=== PATIENT | male | born 1970 | race Caucasian/White ===

== ENCOUNTER 2019-03-08 12:54 | Emergency (ER) | payer BC ==
[2019-03-08 13:50] LABS: Absolute Lymphocytes (CBC) 2.6 K/uL (0.7-4.9); Basophils % 0.3 % (0-1.3); Hematocrit 47.8 % (39.6-49.0); Lymphocytes % 14.1 % (15.3-44.8); MPV 8.8 fL (7.6-11.3); RBC Red Blood Cell Count 5.44 M/uL (4.33-5.43)
[2019-03-08 14:02] LABS: Potassium 4.3 mmol/L (3.5-5.1)
[2019-03-08] MEDS ORDERED: NA CHLORIDE 0.9% 1,000 ML ONE (14:44)
--- NOTE | 2019-03-08 15:03 | RAD REPORT ---
EXAM DESCRIPTION: CT - Abdomen Pelvis Wo Contrast - 03/08/2019 2:49 pm CLINICAL HISTORY: Abdominal pain. 18K WBC COMPARISON: No comparisons TECHNIQUE: CT imaging of the abdomen and pelvis was performed without contrast. Solid organ, bowel a nd vascular assessment is limited due to lack of IV and oral contrast. All CT scans are performed using dose optimization technique as appropriate and may include automated exposure control or mA/KV adjustment according to patient size. FINDINGS: The lower lung lares are clear. The liver, spleen, pancreas, adrenal glands and kidneys are within normal limits for a limited non-co ntrast examination. No bowel obstruction, free air, free fluid or abscess. Several prominent small bowel loops are presen t in the left abdomen. The appendix is normal. The osseous structures are within normal limits. IMPRESSION: Mildly thickened left-sided small bowel loops suggesting mild enteritis. A limited non-contrast examination was performed as detailed.
--- NOTE | 2019-03-08 15:10 | RAD REPORT ---
EXAM DESCRIPTION: RAD - Chest Single View - 03/08/2019 3:01 pm CLINICAL HISTORY: COUGH Chest pain. COMPARISON: Chest Single View dated 11/05/2016; CHEST SINGLE VIEW dated 07/01/2015 FINDINGS: Portable technique limits examination quality. The lungs are grossly clear. The heart is normal in size. No displaced fractures. IMPRESSION: No acute intrathoracic process suspected.
--- NOTE | 2019-03-08 15:59 | ER ---
Nurse's Notes [facility] Name: Sher Willard Age: 48 yrs Sex: Male : 1970 Arrival Date: 03/08/2019 Time: 12:58 Bed 19 Private MD: Jocelyn Chandler H Diagnosis: Hyperglycemia, unspecified;Enteritis;Dehydration Presentation: 03/08 12:59 Presenting complaint: Patient states: I have been feeling ill today and my BGL was like la1 265. Transition of care: patient was not received from another setting of care. Onset of symptoms was March 08, 2019. Risk Assessment: Do you want to hurt yourself or someone else? Patient reports no desire to harm self or others. Initial Sepsis Screen: Does the patient meet any 2 criteria? No. Patient's initial sepsis screen is negative. Does the patient have a suspected source of infection? No. Patient's initial sepsis screen is negative. Care prior to arrival: None. 12:59 Method Of Arrival: Ambulatory la1 12:59 Acuity: SEBASTIAN 3 la1 Historical: - Allergies: 13:00 NKDA; la1 - PMHx: 13:00 Diabetes - NIDDM; Hyperlipidemia; Hypertension; la1 - Immunization history:: Adult Immunizations up to date. - Social history:: Smoking status: Patient/guardian denies using tobacco. - Ebola Screening: : No symptoms or risks identified at this time. - Family history:: not pertinent. - Hospitalizations: : No recent hospitalization is reported. Screenin:30 Abuse screen: Denies threats or abuse. Denies injuries from another. Nutritional sg screening: No deficits noted. Tuberculosis screening: No symptoms or risk factors identified. Never had TB. Fall Risk None identified. Assessment: 13:10 General: Appears in no apparent distress. well groomed, well developed, well nourished, sg Behavior is calm, cooperative, appropriate for age. General: Reports feeling ill for 12-24 hours. Pain: Denies pain. Neuro: Level of Consciousness is awake, alert, obeys commands, Oriented to person, place, time, Front Office Supervisor are equal bilaterally Moves all extremities. Gait is steady, Speech is normal, Facial symmetry appears normal. Cardiovascular: Capillary refill is brisk in bilateral fingers Patient's skin is warm and dry. Chest pain is denied. Respiratory: Airway is patent Respiratory effort is even, unlabored, Respiratory pattern is regular, symmetrical. GI: Abdomen is round non-distended, Bowel sounds present X 4 quads. Reports normal bowel habits, tolerance of fluids, tolerance of food. : No signs and/or symptoms were reported regarding the genitourinary system. EENT: No signs and/or symptoms were reported regarding the EENT system. Derm: Skin is pink, warm \T\ dry. Musculoskeletal: Circulation, motion, and sensation intact. Range of motion: intact in all extremities. 13:43 Reassessment: Patient appears in no apparent distress at this time. Patient and/or sg family updated on plan of care and expected duration. Pain level reassessed. Patient is alert, oriented x 3, equal unlabored respirations, skin warm/dry/pink. 14:22 Reassessment: Patient appears in no apparent distress at this time. Patient and/or sg family updated on plan of care and expected duration. Pain level reassessed. Patient is alert, oriented x 3, equal unlabored respirations, skin warm/dry/pink. awaiting results at this time, will continue to monitor. 15:30 Reassessment: Patient appears in no apparent distress at this time. Patient and/or sg family updated on plan of care and expected duration. Pain level reassessed. Patient is alert, oriented x 3, equal unlabored respirations, skin warm/dry/pink. Vital Signs: 12:59 Pulse 91; Resp 16; Temp 97.6; Pulse Ox 97% on R/A; Weight 106.59 kg; Height 6 ft. 0 in. la1 (182.88 cm); 13:00 BP 117 / 70; la1 15:12 Pulse 74; Resp 16 S; Temp 97.6; Pulse Ox 100% on R/A; sg 15:16 BP 126 / 81; sg 12:59 Body Mass Index 31.87 (106.59 kg, 182.88 cm) la1 ED Course: 12:58 Patient arrived in ED. mr 12:58 Jocelyn Chandler DO is Private Physician. mr 12:59 Arm band placed on left wrist. la1 13:00 Triage completed. la1 13:02 Vu Mckinney, GIOVANNY is Primary Nurse. sg 13:13 Francisco Schaffer MD is Attending Physician. rn 13:15 Patient has correct armband on for positive identification. Bed in low position. Call mh5 light in reach. Adult w/ patient. 13:40 Initial lab(s) drawn, by me, sent to lab. Inserted saline lock: 20 gauge in left sg antecubital area, using aseptic technique. Blood collected. 14:55 CT Abd/Pelvis - Without Contrast In Process Unspecified. EDMS 15:07 XRAY Chest (1 view) In Process Unspecified. EDMS 15:57 Jocelyn Chandler DO is Referral Physician. rn 16:00 No provider procedures requiring assistance completed. IV discontinued, intact, sg bleeding controlled, No redness/swelling at site. Pressure dressing applied. Administered Medications: 13:42 Drug: NS 0.9% 1000 ml Route: IV; Rate: 1000 ml; Site: left antecubital; sg 15:00 Drug: NS 0.9% 1000 ml Route: IV; Rate: 1000 ml; Site: left antecubital; sg 16:00 Follow up: Response: No adverse reaction; IV Status: Completed infusion; IV Intake: sg 990ml Point of Care Testing: Blood Glucose: 13:42 Blood Glucose: 150 mg/dL; sg Ranges: Intake: 16:00 IV: 990ml; Total: 990ml. sg Outcome: 15:58 Discharge ordered by . rn 16:00 Discharged to home ambulatory, with family. sg 16:00 Condition: good 16:00 Discharge instructions given to patient, Instructed on discharge instructions, follow up and referral plans. medication usage, safety practices, Demonstrated understanding of instructions, follow-up care, Prescriptions given X 3. 16:07 Patient left the ED. iw Signatures: Dispatcher [employer] EDMS Vu Mckinney, GIOVANNY BALTAZAR Seema Clements Irene, RN RN iw Nieto, Roman, MD MD rn Attema, Lee, RN RN la1 Martinez, Maria [facility]
--- NOTE | 2019-03-08 16:00 | EDPHYS ---
Physician Documentation [facility] Name: Sher Willard Age: 48 yrs Sex: Male : 1970 Arrival Date: 03/08/2019 Time: 12:58 Bed 19 Private MD: Jocelyn Chandler H ED Physician Francisco Schaffer HPI: 03/08 15:52 This 48 yrs old Male presents to ER via Ambulatory with complaints of High rn Blood Sugar. 15:52 The patient or guardian reports hyperglycemia. Onset: The symptoms/episode rn began/occurred at an unknown time. Associated signs and symptoms: Pertinent positives: polydipsia, Pertinent negatives: constipation, decreased urine output, diarrhea, polyphagia. Current symptoms: In the emergency department the patient's symptoms are unchanged from the initial presentation. The patient has not experienced similar symptoms in the past. The patient has not recently seen a physician. Reports sugar has been running high for about a week, + increased thirst, works outside a lot, today was unloading a truck and got dizzy, took a knee, no syncope, denies pain/focal neuro complains. . Historical: - Allergies: 13:00 NKDA; la1 - PMHx: 13:00 Diabetes - NIDDM; Hyperlipidemia; Hypertension; la1 - Immunization history:: Adult Immunizations up to date. - Social history:: Smoking status: Patient/guardian denies using tobacco. - Ebola Screening: : No symptoms or risks identified at this time. - Family history:: not pertinent. - Hospitalizations: : No recent hospitalization is reported. ROS: 15:52 Constitutional: Negative for fever, chills, and weight loss, Eyes: Negative for injury, rn pain, redness, and discharge, Neck: Negative for injury, pain, and swelling, Cardiovascular: Negative for chest pain, palpitations, and edema, Respiratory: Negative for shortness of breath, cough, wheezing, and pleuritic chest pain, Abdomen/GI: Negative for abdominal pain, nausea, vomiting, diarrhea, and constipation, Back: Negative for injury and pain, MS/Extremity: Negative for injury and deformity, Skin: Negative for injury, rash, and discoloration, Neuro: Negative for headache, numbness, tingling, and seizure. Exam: 14:35 Constitutional: This is a well developed, well nourished patient who is awake, alert, rn and in no acute distress. Head/Face: Normocephalic, atraumatic. Eyes: Pupils equal round and reactive to light, extra-ocular motions intact. Lids and lashes normal. Conjunctiva and sclera are non-icteric and not injected. Cornea within normal limits. Periorbital areas with no swelling, redness, or edema. ENT: MMM, no exudate or swelling Neck: Trachea midline, no thyromegaly or masses palpated, and no cervical lymphadenopathy. Supple, full range of motion without nuchal rigidity, or vertebral point tenderness. No Meningismus. Cardiovascular: Regular rate and rhythm with a normal S1 and S2. No gallops, murmurs, or rubs. Normal PMI, no JVD. No pulse deficits. Respiratory: Lungs have equal breath sounds bilaterally, clear to auscultation and percussion. No rales, rhonchi or wheezes noted. No increased work of breathing, no retractions or nasal flaring. Abdomen/GI: Soft, non-tender, with normal bowel sounds. No distension or tympany. No guarding or rebound. No evidence of tenderness throughout. Skin: Warm, dry. Normal color with no rashes, no lesions, and no evidence of cellulitis. MS/ Extremity: Pulses equal, no cyanosis. Neurovascular intact. Full, normal range of motion. Equal circumference. Neuro: Awake and alert, GCS 15, oriented to person, place, time, and situation. Cranial nerves II-XII grossly intact. Motor strength 5/5 in all extremities. Sensory grossly intact. Cerebellar exam normal. 15:22 ECG was reviewed by the Attending Physician. rn Vital Signs: 12:59 Pulse 91; Resp 16; Temp 97.6; Pulse Ox 97% on R/A; Weight 106.59 kg; Height 6 ft. 0 in. la1 (182.88 cm); 13:00 BP 117 / 70; la1 15:12 Pulse 74; Resp 16 S; Temp 97.6; Pulse Ox 100% on R/A; sg 15:16 BP 126 / 81; sg 12:59 Body Mass Index 31.87 (106.59 kg, 182.88 cm) la1 MDM: 13:13 Patient medically screened. rn 15:52 Differential diagnosis: hyperglycemia, enteritis, viral syndrome, dehydration. Data rn reviewed: vital signs, nurses notes, lab test result(s), radiologic studies, CT scan, plain films, and as a result, I will discharge patient. Counseling: I had a detailed discussion with the patient and/or guardian regarding: the historical points, exam findings, and any diagnostic results supporting the discharge/admit diagnosis, lab results, radiology results, the need for outpatient follow up, to return to the emergency department if symptoms worsen or persist or if there are any questions or concerns that arise at home. Special discussion: I discussed with the patient/guardian in detail that at this point there is no indication for admission to the hospital. It is understood, however, that if the symptoms persist or worsen the patient needs to return immediately for re-evaluation. ED course: Pt with acute kidney injury, likely not far off of baseline, doesn't manage his blood glucose as he should, and can improve his diet. Given 2 L bolus and currently asymptomatic. Will dc home. Has f/u appt with pcp in 2 days and recommend recheck kidney function. CT shows enteritis, will dc home with zofran prn. . 03/08 13:23 Order name: CBC with Diff; Complete Time: 14:12 rn 03/08 13:23 Order name: Basic Metabolic Panel; Complete Time: 14:12 rn 03/08 14:26 Order name: XRAY Chest (1 view); Complete Time: 15:48 rn 03/08 14:26 Order name: CT Abd/Pelvis - Without Contrast; Complete Time: 15:48 rn 03/08 14:45 Order name: Glucose, Ancillary Testing; Complete Time: 15:24 EDPA 03/08 15:01 Order name: Urine Dipstick--Ancillary (enter results) bd 03/08 13:23 Order name: IV Start; Complete Time: 13:42 rn 03/08 13:23 Order name: Glucose Level; Complete Time: 13:42 rn 03/08 13:23 Order name: EKG; Complete Time: 13:24 rn 03/08 13:23 Order name: EKG - Nurse/Tech; Complete Time: 14:43 rn 03/08 14:35 Order name: Urine Dipstick-Ancillary (obtain specimen); Complete Time: 15:00 rn EC:22 Rate is 81 beats/min. Rhythm is regular. QRS [place] is Normal. NC interval is normal. QRS rn interval is normal. QT interval is normal. No Q waves. T waves are Normal. No ST changes noted. Clinical impression: Normal ECG. Interpreted by me. Reviewed by me. Administered Medications: 13:42 Drug: NS 0.9% 1000 ml Route: IV; Rate: 1000 ml; Site: left antecubital; sg 15:00 Drug: NS 0.9% 1000 ml Route: IV; Rate: 1000 ml; Site: left antecubital; sg 16:00 Follow up: Response: No adverse reaction; IV Status: Completed infusion; IV Intake: sg 990ml Point of Care Testing: Blood Glucose: 13:42 Blood Glucose: 150 mg/dL; sg Ranges: Critical Glucose Levels:Adult <50 mg/dl or >400 mg/dl <40 mg/dl or >180 mg/dl Disposition: 03/08/19 15:58 Discharged to Home. Impression: Hyperglycemia, unspecified, Enteritis, Dehydration. - Condition is Stable. - Discharge Instructions: Dehydration, Adult, Hyperglycemia, Blood Glucose Monitoring, Adult. - Prescriptions for Zofran ODT 4 mg Oral tablet,disintegrating - place 1 tablet by TRANSLINGUAL route every 8 hours As needed; 20 tablet. Cipro 500 mg Oral Tablet - take 1 tablet by ORAL route every 12 hours for 10 days; 20 tablet. Flagyl 500 mg Oral Tablet - take 1 tablet by ORAL route every 8 hours for 10 days; 30 tablet. - Medication Reconciliation Form, Thank You Letter, Antibiotic Education, Prescription Opioid Use form. - Follow up: Jocelyn Chandler DO; When: As needed; Reason: Recheck today's complaints, Re-evaluation by your physician. - Problem is new. - Symptoms have improved. Signatures: Dispatcher [employer] EDMS Vu Mckinney RN RN sg Williams, Irene, RN RN iw Nieto, Roman, MD MD rn Attema, Lee, RN RN la1 Corrections: (The following items were deleted from the chart) 14:39 14:35 Constitutional: This is a well developed, well nourished patient who is awake, rn alert, and in no acute distress. Head/Face: Normocephalic, atraumatic. Eyes: Pupils equal round and reactive to light, extra-ocular motions intact. Lids and lashes normal. Conjunctiva and sclera are non-icteric and not injected. Cornea within normal limits. Periorbital areas with no swelling, redness, or edema. Neck: Trachea midline, no thyromegaly or masses palpated, and no cervical lymphadenopathy. Supple, full range of motion without nuchal rigidity, or vertebral point tenderness. No Meningismus. Cardiovascular: Regular rate and rhythm with a normal S1 and S2. No gallops, murmurs, or rubs. Normal PMI, no JVD. No pulse deficits. Respiratory: Lungs have equal breath sounds bilaterally, clear to auscultation and percussion. No rales, rhonchi or wheezes noted. No increased work of breathing, no retractions or nasal flaring. Abdomen/GI: Soft, non-tender, with normal bowel sounds. No distension or tympany. No guarding or rebound. No evidence of tenderness throughout. MS/ Extremity: Pulses equal, no cyanosis. Neurovascular intact. Full, normal range of motion. Equal circumference. Neuro: Awake and alert, GCS 15, oriented to person, place, time, and situation. Cranial nerves II-XII grossly intact. Motor strength 5/5 in all extremities. Sensory grossly intact. Cerebellar exam normal. Normal gait. rn 16:07 15:58 03/08/2019 15:58 Discharged to Home. Impression: Hyperglycemia, unspecified; iw Enteritis; Dehydration. Condition is Stable. Forms are Medication Reconciliation Form, Thank You Letter, Antibiotic Education, Prescription Opioid Use. Follow up: Jocelyn Chandler; When: As needed; Reason: Recheck today's complaints, Re-evaluation by your physician. Problem is new. Symptoms have improved. rn
[2019-03-08 16:09] LABS: Urine Blood TRACE (NEG); Urine Glucose TRACE (NEG); Urine Protein 2+ (NEG); Urine pH 5.5 (5.0-7.0)
[2019-03-08 17:32] VITALS: TEMP 97.6
[2019-03-08 17:34] VITALS: O2SAT 100
[2019-03-08 17:36] VITALS: BP 126/81
--- NOTE | 2019-03-08 18:25 | EKG ---
Test Date: 2019-03-08 Test Time: 13:53:56 Motorcyles Final Inspector: TERRENCE MEASUREMENT RESULTS: Intervals: Rate: 81 CA: 148 QRSD: 80 QT: 358 QTc: 415 [place]: P: 55 CA: 148 QRS: 37 T: 54 INTERPRETIVE STATEMENTS: Sinus rhythm with marked sinus arrhythmia Otherwise normal ECG Compared to ECG 11/12/2016 12:04:12 Atrial premature complex(es) no longer present Electronically Signed On 03-08-19 18:23:39 CDT by Jayden Kan
== END 2019-03-08 16:07 | disposition home or self-care (01) ==
LOC: ER 12:54
DX: E86.0 Dehydration (principal); I10 Essential (primary) hypertension; K52.9 Noninfective gastroenteritis and colitis, unspecified
CPT/HCPCS: 93005; 85025; 80048; 36415; 82962; 81003; 74176; 71045; 96360; 99284; J7030

== ENCOUNTER 2023-10-27 06:51 | Emergency (ER) | payer BC, SELFPAY ==
--- NOTE | 2023-10-27 07:25 | RAD REPORT ---
EXAM DESCRIPTION: RAD - Chest Single View - 10/27/2023 7:17 am CLINICAL HISTORY: CHEST PAIN Chest pain. COMPARISON: Chest Single View dated 03/08/2019; Chest Single View dated 11/05/2016; CHEST SINGLE VIEW dated 07/01/2015 FINDINGS: Portable technique limits examination quality. The lungs are emphysematous but grossly clear. The heart is normal in size. No displaced fractures. IMPRESSION: No acute intrathoracic process suspected.
--- NOTE | 2023-10-27 07:32 | RAD REPORT ---
EXAM DESCRIPTION: CT - C Spine Wo Con - 10/27/2023 7:19 am CLINICAL HISTORY: neck pain, left arm pain/tingling Neck pain, neck injury COMPARISON: No comparisons FINDINGS: The cervical vertebral body heights are maintained. Large posterior osteophyte formation n oted lower cervical levels. No evidence of acute cervical spine fracture or subluxation. Prevertebral soft tissues are normal in thickness. IMPRESSION: Negative for acute cervical spine abnormality. Moderate lower cervical degenerative changes, most notable at C5-6 and C6-7. Nonemergent MRI followup would be useful for further characterization. All CT scans are performed using dose optimization technique as appropriate and may include automated exposure control or mA/KV adjustment according to patient size.
[2023-10-27 07:46] LABS: PT Prothrombin Time 9.4 SECONDS (9.5-12.5); Protime INR 0.85
[2023-10-27 07:51] LABS: Absolute Basophils 0.1 K/uL (0-0.5); Absolute Eosinophils 0.2 K/uL (0-0.5); Absolute Lymphocytes (CBC) 2.9 K/uL (0.7-4.9); Absolute Monocytes 0.7 K/uL (0.1-1.3); Absolute Neutrophil 4.1 K/uL (1.8-8.0); Basophils % 0.8 % (0-1.3); Eosinophils % 2.6 % (0-4.4); Hematocrit 43.6 % (39.6-49.0); Lymphocytes % 36.8 % (15.3-44.8); MCH 29.9 pg (27.0-35.0); MCHC 34.4 g/dL (32.0-36.0); MCV 87.1 fL (80-100); MPV 8.9 fL (7.6-11.3); Monocytes % 8.7 % (3.3-12.3); Neutrophils % 51.1 % (41.7-73.7); Nucleated Red Blood Cells % 0.1 % (0-0); Platelets 319 thou/uL (152-406); RBC Red Blood Cell Count 5.01 M/uL (4.33-5.43); Red Cell Distribution Width 13.7 % (12.1-15.2)
[2023-10-27 07:52] LABS: Anion Gap 7.2 mEq/L (5.0-15.0); Potassium 4.2 mEq/L (3.5-5.1)
--- NOTE | 2023-10-27 09:17 | RAD REPORT ---
EXAM DESCRIPTION: CT - Angio Aorta For Dissection - 10/27/2023 9:06 am CLINICAL HISTORY: Chest pain radiating to the back. chest pain, left arm COMPARISON: No comparisons TECHNIQUE: CT angiography of the aorta was performed with MIPs. All CT scans are performed using dose optimization technique as appropriate and may include automated exposure control or mA/KV adjustment according to patient size. FINDINGS: A left aortic arch is present with normal branching pattern of the great vessels.No acute aortic finding is seen such as aneurysm, penetrating ulcer or dissection. The celiac axis, SMA, RUDY and renal arteries are patent. No evidence of pulmonary embolism. The lungs are clear. The liver demonstrates no focal mass or biliary dilatation.Mild fatty liver.The spleen, pancreas, adr enal glands and kidneys are within normal limits for arterial phase imaging. No bowel obstruction, free fluid or abscess.Moderate stool is present throughout the colon.No patholo gic enlarged lymphadenopathy identified.Small fat containing bilateral inguinal hernias. Prominent posterior disc bulges lower lumbar levels. IMPRESSION: No acute aortic finding is demonstrated. Mild fatty liver. Lower lumbar degenerative spondylosis, moderate.
--- NOTE | 2023-10-27 10:28 | ER ---
Nurse's Notes [facility] Name: Sher Willard Age: 53 yrs Sex: Male : 1970 Arrival Date: 10/27/2023 Time: 06:51 Bed 4 Private MD: Diagnosis: Neck pain;Chest pain, unspecified Presentation: 10/26 07:05 Chief complaint: Patient states: Left arm numbness and tingling onset Thursday. Pt also cm10 reports chest pain to the left side of his chest onset thursday. Coronavirus screen: Client denies travel out of the [place] in the last 14 days. At this time, the client does not indicate any symptoms associated with coronavirus-19. Ebola Screen: Patient denies travel to an Ebola-affected area in the 21 days before illness onset. No symptoms or risks identified at this time. Initial Sepsis Screen: Does the patient meet any 2 criteria? No. Patient's initial sepsis screen is negative. Does the patient have a suspected source of infection? No. Patient's initial sepsis screen is negative. Risk Assessment: Do you want to hurt yourself or someone else? Patient reports no desire to harm self or others. Onset of symptoms was October 27, 2023. 07:05 Method Of Arrival: Ambulatory cm10 07:05 Acuity: SEBASTIAN 2 cm10 Triage Assessment: 07:07 General: Appears in no apparent distress. uncomfortable, Behavior is calm, cooperative. cm10 Pain: Complains of pain in chest Pain does not radiate. Pain currently is 4 out of 10 on a pain scale. Quality of pain is described as shooting. Neuro: No deficits noted. Level of Consciousness is awake, alert, obeys commands, Oriented to person, place, time, situation. Cardiovascular: No deficits noted. Patient's skin is warm and dry. Respiratory: No deficits noted. Airway is patent Respiratory effort is even, unlabored, Respiratory pattern is regular, symmetrical. Historical: - Allergies: 07:07 NKDA; cm10 - PMHx: 07:07 Diabetes - NIDDM; Hyperlipidemia; Hypertension; cm10 - Immunization history:: Adult Immunizations up to date. - Infectious Disease History:: Denies. - Social history:: Smoking status: unknown. - Family history:: not pertinent. - Hospitalizations: : No recent hospitalization is reported. Screenin:25 [facility] ED Fall Risk Assessment (Adult) History of falling in the last 3 months, cm10 including since admission No falls in past 3 months (0 pts) Confusion or Disorientation No (0 pts) Intoxicated or Sedated No (0 pts) Impaired Gait No (0 pts) Mobility Assist Device Used No (0 pt) Altered Elimination No (0 pt) Score/Fall Risk Level 0 - 2 = Low Risk Oriented to surroundings, Maintained a safe environment, Hourly rounding (assess needs \T\ fall precautionary measures) done. Abuse screen: Denies threats or abuse. Denies injuries from another. Nutritional screening: No deficits noted. Tuberculosis screening: No symptoms or risk factors identified. Assessment: 09:15 General: Appears in no apparent distress. comfortable, Behavior is calm, cooperative, nj1 appropriate for age. 09:15 Pain: Complains of pain in chest Pain currently is 3 out of 10 on a pain scale. Is nj1 intermittent. Neuro: Level of Consciousness is awake, alert, obeys commands, Oriented to person, place, time, situation. Cardiovascular: Patient's skin is warm and dry. Rhythm is sinus rhythm Chest pain is described as mild. Respiratory: Airway is patent Respiratory effort is even, unlabored. 10:47 Reassessment: Patient appears in no apparent distress at this time. Patient is alert, nj1 oriented x 3, equal unlabored respirations, skin warm/dry/pink. Vital Signs: 07:05 BP 188 / 103; Pulse 78; Resp 18; Temp 98.4(O); Pulse Ox 99% on R/A; Weight 106.59 kg; cm10 Height 6 ft. 0 in. ; Pain 4/10; 09:28 BP 148 / 101; Pulse 69; Resp 20; Pulse Ox 96% on R/A; Pain 3/10; nj1 10:47 BP 146 / 83; Pulse 69; Resp 19; Pulse Ox 95% on R/A; nj1 07:05 Body Mass Index 31.87 (106.59 kg, 182.88 cm) cm10 07:05 Pain Scale: Adult cm10 09:28 Pain Scale: Adult nj1 ED Course: 06:56 Patient arrived in ED. gm2 06:57 Francisco Schaffer MD is Attending Physician. rn 07:07 Triage completed. cm10 07:08 Arm band placed on Patient placed in an exam room, on a stretcher, on traffic monitor specialist, cm10 on pulse oximetry. EKG completed in triage. Results shown to MD. 07:14 EKG done, by crime scene technician. reviewed by Francisco Schaffer MD. oe 07:18 XRAY Chest (1 view) In Process Unspecified. EDMS 07:18 CT C Spine In Process Unspecified. EDMS 07:25 Alyson Arellano, RN is Primary Nurse. cm10 07:25 Basic Metabolic Panel Sent. cm10 07:25 CBC with Diff Sent. cm10 07:25 NT PRO-BNP Sent. cm10 07:25 PT-INR Sent. cm10 07:25 Troponin HS Sent. cm10 07:25 Initial lab(s) drawn, by md, sent to lab. Inserted saline lock: 20 gauge in right cm10 antecubital area, using aseptic technique. Blood collected. O2 via Room Air. 07:26 Patient has correct armband on for positive identification. Bed in low position. Call cm10 light in reach. Side rails up X2. Provided Education on: Call light use. Client placed on continuous cardiac and pulse oximetry monitoring. NIBP monitoring applied. media monitor on. 09:04 Tara Sharpe, RN is Primary Nurse. nj1 09:07 CT Aorta for Dissection In Process Unspecified. EDMS 09:09 Patient moved back from radiology. kn 10:27 Rodriguez Charles MD is Referral Physician. rn 10:48 No provider procedures requiring assistance completed. IV discontinued, intact, nj1 bleeding controlled. Administered Medications: No medications were administered Medication: 07:25 VIS not applicable for this client. cm10 Outcome: 10:27 Discharge ordered by . rn 10:48 Discharged to home ambulatory, nj1 10:48 Condition: stable 10:48 Discharge instructions given to patient, Instructed on discharge instructions, follow up and referral plans. medication usage, Demonstrated understanding of instructions, follow-up care, medications, Prescriptions given X 1, 10:48 Patient left the ED. nj1 Signatures: Dispatcher [employer] EDMS Francisco Schaffer MD MD rn Espinosa, Orlando oe Jaco, Norma, RN RN nj1 Alyson Arellano, RN RN cm10 Lucinda Chapin gm2 YANETH BECKHAM RN GIOVANNY gao
--- NOTE | 2023-10-27 10:28 | EDPHYS ---
Physician Documentation [facility] Name: Sher Willard Age: 53 yrs Sex: Male : 1970 Arrival Date: 10/27/2023 Time: 06:51 Bed 4 Private MD: ED Physician Francisco Schaffer HPI: 10/26 07:44 This 53 yrs old Male presents to ER via Ambulatory with complaints of Chest Pain, Arm rn Pain. 07:44 The patient or guardian reports chest pain that is located primarily in the anterior rn chest wall, left. Onset: 3 day(s) ago. The pain radiates to the left arm. Associated signs and symptoms: Pertinent negatives: abdominal pain, cough, diaphoresis, dizziness, shortness of breath, syncope, vomiting. The chest pain is described as aching. Duration: The patient or guardian reports multiple episodes, that are intermittent, the episodes last approximately 2 minute(s). Modifying factors: The symptoms are alleviated by nothing. the symptoms are aggravated by movement. Severity of pain: At its worst the pain was mild in the emergency department the pain is unchanged. The patient has not experienced similar symptoms in the past. Patient reports left arm pain and tingling associated with left outer chest pain. Started 3 to 4 days ago. It is intermittent and lasting 1 to 2 minutes. Patient reports started in the left arm and spread to the left chest. Arm feels tingly and is positional. Patient reports increased pain with movement of the arm. Denies any fall or trauma. No neck pain. No previous cardiac problems.. Historical: - Allergies: 07:07 NKDA; cm10 - PMHx: 07:07 Diabetes - NIDDM; Hyperlipidemia; Hypertension; cm10 - Immunization history:: Adult Immunizations up to date. - Infectious Disease History:: Denies. - Social history:: Smoking status: unknown. - Family history:: not pertinent. - Hospitalizations: : No recent hospitalization is reported. ROS: 07:45 Constitutional: Negative for fever, chills, and weight loss, Cardiovascular: Positive rn for left-sided chest pain Respiratory: Negative for shortness of breath, cough, wheezing, and pleuritic chest pain, Abdomen/GI: Negative for abdominal pain, nausea, vomiting, diarrhea, and constipation, Back: Negative for injury and pain, MS/Extremity: Positive for left arm pain and tingling Skin: Negative for injury, rash, and discoloration, Neuro: Positive for tingling of the left arm. No weakness. No headache. Exam: 07:45 Constitutional: This is a well developed, well nourished patient who is awake, alert, rn and in no acute distress. Head/Face: Normocephalic, atraumatic. Neck: No midline cervical tenderness Chest/axilla: Normal chest wall appearance and motion. Nontender with no deformity. No lesions are appreciated. Cardiovascular: Regular rate and rhythm. No pulse deficits. Respiratory: No increased work of breathing, no retractions or nasal flaring. Abdomen/GI: Soft, non-tender MS/ Extremity: Pulses equal, no cyanosis. Neurovascular intact. Full, normal range of motion. Equal circumference. Neuro: Awake and alert, GCS 15, oriented to person, place, time, and situation. Cranial nerves II-XII grossly intact. Motor strength 5/5 in all extremities. Sensory grossly intact. Cerebellar exam normal. Normal gait. 10:41 ECG was reviewed by the Attending Physician. rn Vital Signs: 07:05 BP 188 / 103; Pulse 78; Resp 18; Temp 98.4(O); Pulse Ox 99% on R/A; Weight 106.59 kg; cm10 Height 6 ft. 0 in. ; Pain 4/10; 09:28 BP 148 / 101; Pulse 69; Resp 20; Pulse Ox 96% on R/A; Pain 3/10; nj1 10:47 BP 146 / 83; Pulse 69; Resp 19; Pulse Ox 95% on R/A; nj1 07:05 Body Mass Index 31.87 (106.59 kg, 182.88 cm) cm10 07:05 Pain Scale: Adult cm10 09:28 Pain Scale: Adult nj1 MDM: 06:57 Patient medically screened. rn 10:25 Differential diagnosis: acute myocardial infarction, acute pericarditis, anxiety, rn coronary artery disease chest wall pain, costochondritis, pleurisy, pneumothorax, stable angina, thoracic aortic disection, Radiculopathy, neuropathy. Data reviewed: vital signs, nurses notes, lab test result(s), EKG, radiologic studies, CT scan, plain films, and as a result, I will discharge patient. Counseling: I had a detailed discussion with the patient and/or guardian regarding the historical points, exam findings, and any diagnostic results supporting the discharge/admit diagnosis, lab results, radiology results, the need for outpatient follow up, to return to the emergency department if symptoms worsen or persist or if there are any questions or concerns that arise at home. Special discussion: Based on the patient's history, exam, and Dx evaluation, there is no indication for emergent intervention or inpatient Tx. It is understood by the patient/guardian that if the Sx's persist or worsen they need to return immediately for re-evaluation. I discussed with the patient/guardian in detail that at this point there is no indication for admission to the hospital. It is understood, however, that if the symptoms persist or worsen the patient needs to return immediately for re-evaluation. ED course: Patient feels better. Again states that arm pain is positional and actually gets better with use and exertion. Denies any current chest pain. Troponin negative x 2. CT aorta negative for acute findings. Will discharge home with return precautions and PCP and cardiology follow-up. ECG without acute ischemic changes or findings.. 10/26 07:05 Order name: Basic Metabolic Panel; Complete Time: 08:50 10/26 07:05 Order name: CBC with Diff; Complete Time: 08:50 10/26 07:05 Order name: NT PRO-BNP; Complete Time: 08:50 10/26 07:05 Order name: PT-INR; Complete Time: 08:50 10/26 07:05 Order name: Troponin HS; Complete Time: 08:50 10/26 09:34 Order name: Troponin High Sensitivity; Complete Time: 10:22 10/26 07:05 Order name: XRAY Chest (1 view); Complete Time: 07:41 10/26 07:05 Order name: CT C Spine; Complete Time: 07:41 10/26 08:50 Order name: CT Aorta for Dissection; Complete Time: 09:20 10/26 07:05 Order name: EKG; Complete Time: 07:05 10/26 07:05 Order name: Cardiac monitoring; Complete Time: 07:25 10/26 07:05 Order name: EKG - Nurse/Tech; Complete Time: 07:14 10/26 07:05 Order name: IV Saline Lock; Complete Time: 07:10/26 07:05 Order name: Labs collected and sent; Complete Time: 07:25 rn 10/26 07:05 Order name: O2 Per Protocol; Complete Time: : rn 10/26 07:05 Order name: O2 Sat Monitoring; Complete Time: : rn EC:41 Rate is 70 beats/min. Rhythm is regular. QRS [place] is Normal. WA interval is normal. QRS rn interval is normal. QT interval is normal. No Q waves. T waves are Normal. No ST changes noted. Clinical impression: NSR w/ Non-specific ST/T Changes. Interpreted by me. Reviewed by me. Administered Medications: No medications were administered Disposition Summary: 10/27/23 10:27 Discharge Ordered Notes: Location: Home rn Problem: new rn Symptoms: have improved rn Condition: Stable rn Diagnosis - Neck pain rn - Chest pain, unspecified rn Followup: rn - With: Rodriguez Charles MD - When: As needed - Reason: Recheck today's complaints, Re-evaluation by your physician Discharge Instructions: - Discharge Summary Sheet rn - Nonspecific Chest Pain, Adult rn - Pain Without a Known Cause rn Forms: - Work release form iw - Medication Reconciliation Form rn - Thank You Letter rn - Antibiotic international bank manager - Prescription Opioid Use rn - Patient Portal Instructions rn - Leadership Thank You Letter rn Prescriptions: - gabapentin 300 mg Oral capsule - take 1 capsule ORAL route 2 times per day As needed; 14 capsule; Refills: 0, rn Product Selection Permitted Signatures: Dispatcher [employer] Francisco Vu MD MD rn Martinez, Clarissa, RN RN 10
[2023-10-27 13:13] VITALS: BP 146/83; TEMP 98.4; O2SAT 95
== END 2023-10-27 10:48 | disposition home or self-care (01) ==
LOC: ER 06:51
DX: R07.9 Chest pain, unspecified (principal); M54.2 Cervicalgia
CPT/HCPCS: 36415; 71045; 71275; 72125; 74175; 80048; 83880; 84484; 85025; 85610; 93005; 99285; Q9967